=== PATIENT | female | born 1960 | race American Indian/Alaskan Native ===

== ENCOUNTER 2020-02-22 11:17 | Emergency (ER) | payer MEDICAID ==
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
[2020-02-22] MEDS ORDERED: ZIPRASIDONE MESYLATE 20 MG VIAL IM ONE (12:50)
[2020-02-22] MEDS ORDERED: WATER FOR INJ Sterile (PF) 10 ML ONE (12:58)
[2020-02-22] MEDS ORDERED: LORazepam 2 MG/ML VIAL IM ONE (14:00)
[2020-02-22 14:24] LABS: Bilirubin,Urine NEG (Negative); Blood,Urine NEG (Negative); Color,Urine Yellow (Yellow); Mucus,Urine 3+ /HPF
[2020-02-22 14:32] LABS: Amphetamine Screen,Urine PRESUMPTIVE NEGATIVE; Benzodiazepines Screen,Urine PRESUMPTIVE NEGATIVE; Cannabinoid Screen,Urine PRESUMPTIVE NEGATIVE; Cocaine Screen,Urine PRESUMPTIVE NEGATIVE; Methadone Screen,Urine PRESUMPTIVE NEGATIVE; Opiate Screen,Urine PRESUMPTIVE NEGATIVE
[2020-02-22 14:59] LABS: Basophils % (Auto) 0.1 % (0.0-1.8); Hematocrit 39.4 % (30.3-42.9); Hemoglobin 12.5 gm/dl (10.1-14.3); Lymphocytes # (Auto) 1.3 K/mm3 (1.2-5.4); Lymphocytes % (Auto) 15.9 % (13.4-35.0); Mean Corpuscular HGB Conc 32 % (30-34); Mean Corpuscular Volume 73 fl (79-97); Monocytes # (Auto) 0.5 K/mm3 (0.0-0.8); Monocytes % (Auto) 6.3 % (0.0-7.3); Platelet Count 195 K/mm3 (140-440); Red Blood Count 5.43 M/mm3 (3.65-5.03); Red Cell Distribution Width 15.8 % (13.2-15.2)
[2020-02-22 15:21] LABS: BUN/Creatinine Ratio 18; Blood Urea Nitrogen 11 mg/dL (7-17); Calcium 9.4 mg/dL (8.4-10.2); Hemolysis Index 4
[2020-02-22] MEDS: NITROFURANTOIN MONOHYD/M-CRYST 100 MG CAP PO SCH (20:40)
[2020-02-22] MEDS ORDERED: LORazepam 1 MG TAB PO ONE (20:44)
[2020-02-22] MEDS ORDERED: HALOPERIDOL LACTATE 5 MG/1 ML INJ IM ONE (21:09)
[2020-02-22] MEDS ORDERED: HALOPERIDOL LACTATE 5 MG/1 ML INJ ONE (21:11)
[2020-02-23] MEDS: NITROFURANTOIN MONOHYD/M-CRYST 100 MG CAP PO SCH ×2 (01:32→10:48)
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
[2020-02-23] MEDS ORDERED: risperiDONE 0.25 MG TAB PO SCH (12:00)
[2020-02-23] MEDS ORDERED: traZODone 50 MG TAB PO SCH (12:00)
[2020-02-23] MEDS ORDERED: HALOPERIDOL LACTATE 5 MG/1 ML INJ IM PRN (12:28)
[2020-02-23] MEDS ORDERED: LORazepam 2 MG/ML VIAL IM PRN (12:28)
[2020-02-23 21:16] VITALS: BP 162/81
[2020-02-23] MEDS ORDERED: MELATONIN 5 MG TAB PO PRN (22:00)
== END 2020-02-23 21:30 ==
LOC: EEVIPCON 11:17 → ED 11:17
DX: F20.0 Paranoid schizophrenia (principal); N39.0 Urinary tract infection, site not specified; I10 Essential (primary) hypertension; Z98.890 Other specified postprocedural states; Z79.899 Other long term (current) drug therapy
CPT/HCPCS: 36415; 80048; 80307; 81001; 85025; 87086; 96372; 99285; J1630; J2060; J3486; 80320; G0480

== ENCOUNTER 2020-03-26 03:51 | Emergency (ER) | payer MEDICAID ==
--- NOTE | 2020-03-26 04:11 | Emergency Department Report ---
HPI - General PUI?: No Time Seen by Provider: 03/26/20 03:54 - HPI HPI: Room 14 The patient is a 60-year-old female present with a chief complaint of suicidal ideation. The patient was at the [facility] and asked the staff to call EMS secondary to her suicidal ideation. Patient states she felt suicidal for 1 day. Patient admits to taking 6 of her pills today or yesterday but cannot recall which one it was. ED Past Medical Hx - Past Medical History Hx Hypertension: Yes Hx Psychiatric Treatment: Yes (paranoid schizophrenia) - Surgical History Additional Surgical History: hernia repair (abd) - Family History Family history: no significant - Social History Smoking Status: Never Smoker Substance Use Type: None - Medications Home Medications: Home Medications Medication Instructions Recorded Confirmed Last Taken Type Benztropine [Cogentin] 0.5 mg PO BID 02/22/20 02/22/20 Unknown History Nitrofurantoin [place]/M-Cryst 100 mg PO Q12HR #10 capsule 02/22/20 Unknown Rx [Macrobid CAP] amLODIPine [Norvasc] 10 mg PO DAILY 02/22/20 02/22/20 Unknown History risperiDONE [risperiDONE INJ] 2 mg PO BID 02/22/20 02/22/20 Unknown History traZODone [Desyrel] 25 mg PO QHS 02/22/20 02/22/20 Unknown History ED Review of Systems ROS: Stated complaint: MH Other details as noted in HPI Constitutional: no symptoms reported Respiratory: no symptoms reported Endocrine: no symptoms reported Psychiatric: suicidal thoughts Physical Exam - Physical Exam Physical Exam: GENERAL: The patient is well-developed well-nourished female sitting on floor not appearing to be in acute distress HEENT: Normocephalic. Atraumatic. Extraocular motions are intact. Patient has moist mucous membranes. NECK: Supple. Trachea midline CHEST/LUNGS: Clear to auscultation. There is no respiratory distress noted. HEART/CARDIOVASCULAR: Regular. There is no tachycardia. There is no gallop rub or murmur. ABDOMEN: Abdomen is soft, nontender. Patient has normal bowel sounds. There is no abdominal distention. SKIN: There is no rash. There is no edema. There is no diaphoresis. NEURO: The patient is awake and alert. The patient is cooperative. The patient has normal speech MUSCULOSKELETAL: There is no evidence of acute injury. ED Medical Decision Making - Lab Data Result diagrams: 03/26/20 05:50 03/26/20 05:50 Laboratory Tests 03/26/20 03/26/20 03/26/20 05:50 05:50 05:50 WBC 7.9 RBC 4.92 Hgb 11.6 Hct 36.1 MCV 73 L MCH 24 L MCHC 32 RDW 16.9 H Plt Count 167 Lymph % (Auto) 24.2 [place] % (Auto) 13.0 H Eos % (Auto) 0.2 Baso % (Auto) 0.4 Lymph # 1.9 [place] # 1.0 H Eos # 0.0 Baso # 0.0 Seg Neutrophils % 62.2 Seg Neutrophils # 4.9 Sodium 140 Potassium 3.4 L Chloride 104.2 Carbon Dioxide 22 Anion Gap 17 BUN 11 Creatinine 0.6 L Estimated GFR > 60 BUN/Creatinine Ratio 18 Glucose 91 Calcium 9.1 Total Bilirubin 0.30 AST 14 ALT 8 Alkaline Phosphatase 60 Total Protein 7.1 Albumin 3.9 Albumin/Globulin Ratio 1.2 Urine Color Urine Turbidity Urine pH Ur Specific Mayo Urine Protein Urine Glucose (UA) Urine Ketones Urine Blood Urine Nitrite Urine Bilirubin Urine Urobilinogen Ur Leukocyte Esterase Urine WBC (Auto) Urine RBC (Auto) U Epithel Cells (Auto) Urine Bacteria (Auto) Urine Mucus Salicylates < 0.3 L Urine Opiates Screen Urine Methadone Screen Acetaminophen Ur Barbiturates Screen Ur Phencyclidine Scrn Ur Amphetamines Screen U Benzodiazepines Scrn Urine Cocaine Screen U Marijuana (THC) Screen Drugs of Abuse Note Plasma/Serum Alcohol 03/26/20 03/26/20 03/26/20 05:50 05:50 05:55 WBC RBC Hgb Hct MCV MCH MCHC RDW Plt Count Lymph % (Auto) [place] % (Auto) Eos % (Auto) Baso % (Auto) Lymph # [place] # Eos # Baso # Seg Neutrophils % Seg Neutrophils # Sodium Potassium Chloride Carbon Dioxide Anion Gap BUN Creatinine Estimated GFR BUN/Creatinine Ratio Glucose Calcium Total Bilirubin AST ALT Alkaline Phosphatase Total Protein Albumin Albumin/Globulin Ratio Urine Color Straw Urine Turbidity Clear Urine pH 7.0 Ur Specific Mayo 1.011 Urine Protein <15 mg/dl Urine Glucose (UA) Neg Urine Ketones Tr Urine Blood Neg Urine Nitrite Neg Urine Bilirubin Neg Urine Urobilinogen < 2.0 Ur Leukocyte Esterase Sm Urine WBC (Auto) 2.0 Urine RBC (Auto) 1.0 U Epithel Cells (Auto) 2.0 Urine Bacteria (Auto) 1+ Urine Mucus Few Salicylates Urine Opiates Screen Urine Methadone Screen Acetaminophen < 5.0 L Ur Barbiturates Screen Ur Phencyclidine Scrn Ur Amphetamines Screen U Benzodiazepines Scrn Urine Cocaine Screen U Marijuana (THC) Screen Drugs of Abuse Note Plasma/Serum Alcohol < 0.01 03/26/20 05:55 WBC RBC Hgb Hct MCV MCH MCHC RDW Plt Count Lymph % (Auto) [place] % (Auto) Eos % (Auto) Baso % (Auto) Lymph # [place] # Eos # Baso # Seg Neutrophils % Seg Neutrophils # Sodium Potassium Chloride Carbon Dioxide Anion Gap BUN Creatinine Estimated GFR BUN/Creatinine Ratio Glucose Calcium Total Bilirubin AST ALT Alkaline Phosphatase Total Protein Albumin Albumin/Globulin Ratio Urine Color Urine Turbidity Urine pH Ur Specific Mayo Urine Protein Urine Glucose (UA) Urine Ketones Urine Blood Urine Nitrite Urine Bilirubin Urine Urobilinogen Ur Leukocyte Esterase Urine WBC (Auto) Urine RBC (Auto) U Epithel Cells (Auto) Urine Bacteria (Auto) Urine Mucus Salicylates Urine Opiates Screen Presumptive negative Urine Methadone Screen Presumptive negative Acetaminophen Ur Barbiturates Screen Presumptive negative Ur Phencyclidine Scrn Presumptive negative Ur Amphetamines Screen Presumptive negative U Benzodiazepines Scrn Presumptive negative Urine Cocaine Screen Presumptive negative U Marijuana (THC) Screen Presumptive negative Drugs of Abuse Note Disclamer Plasma/Serum Alcohol - Differential Diagnosis Suicidal ideation, schizophrenia Critical care attestation.: If time is entered above; I have spent that time in minutes in the direct care of this critically ill patient, excluding procedure time. ED Disposition Clinical Impression: Suicidal ideation, Schizophrenia Disposition: DC/TX-65 PSY HOSP/PSY UNIT Is pt being admited?: No Does the pt Need Aspirin: No Condition: Stable Time of Disposition: 04:11 (Awaiting acceptance)
[2020-03-26] MEDS ORDERED: HALOPERIDOL LACTATE 5 MG/1 ML INJ IM PRN (04:32)
[2020-03-26] MEDS ORDERED: diphenhydrAMINE 50 MG/ML VIAL IM PRN (04:32)
[2020-03-26] MEDS ORDERED: LORazepam 2 MG/ML VIAL IM PRN (04:32)
[2020-03-26 06:11] LABS: Basophils % (Auto) 0.4 % (0.0-1.8); Eosinophils % (Auto) 0.2 % (0.0-4.3); Hematocrit 36.1 % (30.3-42.9); Hemoglobin 11.6 gm/dl (10.1-14.3); Lymphocytes # (Auto) 1.9 K/mm3 (1.2-5.4); Lymphocytes % (Auto) 24.2 % (13.4-35.0); Mean Corpuscular HGB Conc 32 % (30-34); Mean Corpuscular Volume 73 fl (79-97); Platelet Count 167 K/mm3 (140-440); Red Blood Count 4.92 M/mm3 (3.65-5.03); Red Cell Distribution Width 16.9 % (13.2-15.2)
[2020-03-26 06:26] LABS: Amphetamine Screen,Urine PRESUMPTIVE NEGATIVE; Benzodiazepines Screen,Urine PRESUMPTIVE NEGATIVE; Cannabinoid Screen,Urine PRESUMPTIVE NEGATIVE; Cocaine Screen,Urine PRESUMPTIVE NEGATIVE; Methadone Screen,Urine PRESUMPTIVE NEGATIVE; Opiate Screen,Urine PRESUMPTIVE NEGATIVE
[2020-03-26 06:27] LABS: Alanine Aminotransferase 8 units/L (7-56); Albumin 3.9 g/dL (3.9-5); BUN/Creatinine Ratio 18; Blood Urea Nitrogen 11 mg/dL (7-17); Calcium 9.1 mg/dL (8.4-10.2); Hemolysis Index 3
[2020-03-26 06:51] LABS: Bacteria,Urine 1+ /HPF (Negative); Bilirubin,Urine NEG (Negative); Blood,Urine NEG (Negative); Color,Urine Straw (Yellow); Mucus,Urine FEW /HPF; Protein,Urine <15 mg/dL mg/dL (Negative); Urobilinogen,Urine < 2.0 mg/dL (<2.0)
[2020-03-26] MEDS ORDERED: POTASSIUM CHLORIDE ER 20 MEQ TAB PO ONE (20:30)
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
[2020-03-27] MEDS ORDERED: ZIPRASIDONE MESYLATE 20 MG VIAL IM PRN (11:23)
[2020-03-27] MEDS ORDERED: risperiDONE 1 MG TAB PO SCH (12:00)
[2020-03-27] MEDS ORDERED: BENZTROPINE 0.5 MG TAB PO SCH (12:00)
[2020-03-27 21:07] VITALS: BP 122/67
[2020-03-27] MEDS ORDERED: traZODone 50 MG TAB PO SCH (22:00)
== END 2020-03-27 21:08 ==
LOC: ED 03:51
DX: F20.0 Paranoid schizophrenia (principal); R45.851 Suicidal ideations; I10 Essential (primary) hypertension; Z98.890 Other specified postprocedural states; Z79.899 Other long term (current) drug therapy
CPT/HCPCS: 36415; 80053; 80307; 81001; 85025; 96372; 99285; J1630; J2060; 80320; G0480